=== PATIENT | female | born 1995 ===

== ENCOUNTER 2018-04-28 16:15 | Emergency (ER) | payer OTHER ==
--- NOTE | 2018-04-28 18:51 | OBHP ---
Datetime: 04/28/2018 17:44 IP Adm Impression: Term, intrauterine ; No Active Labor; Intact Membranes IP Admit Plan: Observation/Evaluation; Discharge home Admit Comment, IP Provider: Pt is a 22 yo F 38.2wk, ERUM 05/10/18 confirmed with U/S on , Reported LMP 08/09/17. Came to [facility] due to contractions since 7am. She reports good movemen ts. Denies vaginal bleeding, LOF, fevers, chills, chest pain, SOB, nausea, vomiting, diarrhea, consti pation or dysuria. 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 Lungs: clear to auscultation bilaterally, no wheezing, rales or rhonchi Abdomen: gravid Extremities: no edema Bimanual Exam- Cervix closed Speculum- Not performed heart rate - 140's, 6-25 moderate variability, category 1 A/P: Pt is a 22 yo F 38.2wk, ERUM 05/10/18 based on LMP 08/09/17 and ultrasound of 10/31/17. Came to [facility] due to contractions since 7am. -Observe in OB ED for changes in cervix Q hour -Continue to monitor heart rate (140's) Case reviewed and discussed with Attending -Leonora Rothman- PGY1 Attending Note: Patient was reevaluated after 1.5 hours of walking SVE: No cervical change. Plan: D/C Home Labor instructions given F/U with OB practitioner within 1 week. Pelvic Type - PN: Adequate Extremities - PN: Normal Abdomen - PN: Normal Back - PN: Not Done Breast - PN: Not Done Lungs - PN: Normal Heart - PN: Normal Thyroid - PN: Not Done Neurologic - PN: Normal HEENT - PN: Normal General - PN: Normal FHR - Baseline A Provider: 140 Membranes, Provider: Intact Comments, ACOG Physical Exam: Bimanual Exam- Cervix closed IP Hx Assessment: The History has been Reviewed and is Current EGA AdmitDate IP: 38.2 Vital Signs Provider: Reviewed; Within Normal Limits IP Chief Complaint: Uterine contractions NICHD Variability Prov Fetus A: Moderate 6-25bpm NICHD Accel Fetus A IP Provider: 15X15 FHR Category Provider Fetus A: Category I NICHD Decel Fetus A IP Provider: None Dilatation, Provider: 0 Genitourinary Exam: Normal DTRs - PN: Not Done
== END 2018-04-28 18:45 | disposition home or self-care (01) ==
LOC: H.EROB2 16:15
DX: O26.93 Pregnancy related conditions, unspecified, third trimester (principal); R10.2 Pelvic and perineal pain; Z3A.38 38 weeks gestation of pregnancy

== ENCOUNTER 2018-04-28 23:33 | Inpatient (IN) | payer OTHER ==
[2018-04-29 00:04] VITALS: BMI 30.2
[2018-04-29] MEDS ORDERED: Oxytocin 30 UNIT 30 UNITS/500 ML BAG IV ONE ×3 (00:04→09:56)
[2018-04-29] MEDS: Lactated Ringer's 1,000 ML IV ONE ×2 (00:05→00:40)
[2018-04-29] MEDS ORDERED: OXYTOCIN IV ONE (00:14)
[2018-04-29] MEDS ORDERED: NS IV ONE (00:14)
[2018-04-29] MEDS ORDERED: Lactated Ringer's 1,000 ML IV SCH (00:15)
--- NOTE | 2018-04-29 00:17 | OBADHP ---
Datetime: 04/29/2018 00:09 Admit Comment, IP Provider: 22yo with IUP at 38+ weeks. She returns today with pelvic contracti ons which has increased in intensity after being discharged yesterday for irregular labor. She denies any Vaginal bleeding or LOF. She felt movement. PNC from [place]. O; Afebrile Heart: RRR Chest: CTA B/L Abdomen: Soft, NT, BS- present FHR- 150s with Moderate variabilities TOCO- q 2-4 SVE: /2 Assessment: IUP at 38wks in Active Labor Reassuring Maternal Status Plan: Admit to labor and delivery. Monitor for the progress of labor. Pelvic Type - PN: Adequate Extremities - PN: Normal Abdomen - PN: Normal Back - PN: Normal Breast - PN: Normal Lungs - PN: Normal Heart - PN: Normal Thyroid - PN: Normal Neurologic - PN: Normal HEENT - PN: Normal General - PN: Normal Presentation-Admit: Vertex FHR - Baseline A Provider: 150 Membranes, Provider: Intact Contraction Comments Provider: Q 2-4 Gestation - Est Wks by US: 38.3 IP Chief Complaint: Uterine contractions; Maternal discomfort NICHD Variability Prov Fetus A: Moderate 6-25bpm NICHD Accel Fetus A IP Provider: [id number] FHR Category Provider Fetus A: Category I NICHD Decel Fetus A IP Provider: None Dilatation, Provider: 7 Effacement, Provider: 90 Station, Provider: -1 Genitourinary Exam: Normal DTRs - PN: Normal EGA AdmitDate IP: 38.3 IP Adm Impression: Term, intrauterine ; Active labor IP Admit Plan: Admit to unit; Initiate labor protocol Datetime: 04/28/2018 17:44 Comments, ACOG Physical Exam: Bimanual Exam- Cervix closed IP Hx Assessment: The History has been Reviewed and is Current Vital Signs Provider: Reviewed; Within Normal Limits
[2018-04-29 00:24] LABS: BASO % 0.2 % (0.0-2.0); EOS % 0.1 % (0.0-4.0); HEMOGLOBIN 14.5 g/dL (12.0-16.0); LYMPH # 1.2 K/uL (1.0-4.3); LYMPH % 7.2 % (20.0-40.0); MEAN CELL VOLUME 92.9 fl (81.0-99.0); MEAN CORPUSCULAR HEMOGLOBIN 31.3 pg (27.0-31.0); MEAN CORPUSCULAR HGB CONC 33.7 g/dL (33.0-37.0); MEAN PLATELET VOLUME 11.1 fl (7.2-11.7); MONO # 0.8 K/uL (0.0-0.8); MONO % 4.7 % (0.0-10.0); NEUT # 14.7 K/uL (1.8-7.0); NEUT % 87.8 % (50.0-75.0); PLATELET COUNT 130 K/uL (130-400); RBC 4.62 Mil/uL (3.80-5.20); RED CELL DISTRIBUTION WIDTH 13.2 % (11.5-14.5); WHITE BLOOD COUNT 16.8 K/uL (4.8-10.8)
[2018-04-29] MEDS ORDERED: Fentanyl/Bupivacaine HCl 250 ML EPI ONE (00:36)
[2018-04-29 01:42] VITALS: O2SAT 100
[2018-04-29 01:42] LABS: LYMPHOCYTE 7 % (20-50); METAMYELOCYTE 1 % (0-0); MONOCYTE 5 % (0-10); NEUTROPHIL 86 % (42-75); PLATELET ESTIMATE DECREASED (NORMAL); REACTIVE LYMPHOCYTES 1 % (0-0); TOTAL CELLS COUNTED 100
[2018-04-29] MEDS ORDERED: Lidocaine 1% Inj (20ml) ONE (03:06)
--- NOTE | 2018-04-29 06:26 | OBDS ---
DELIVERY PERSONNEL Delivery Doctor: Sandra Goode MD Cake Washer: Mary Sheridan RN, Zheng BOWERS, Charis BOWERS Anesthesiologist: Rd Cool MD MATERNAL INFORMATION Delivery Anesthesia: Epidural Medications in Delivery: Pitocin Placenta Cultured: No Maternal Complications: None Provider Comments: Patient was fully dilated and was pushing. The FHR was registering episodes of fe gordon bradycardia for 2-3 mins to the 80s. SVE: 10/100/+3. On account of the repetititive decelerations, A kiwi vacuum extractor was a pplied and a right mediolateral episiotomy performed. A viable male infant with BW of 3125gm and APGA R scores of 9 and 9 was delivered after 1 pull. Placenta delivered spontaneously. EBL- 250mls Episiotomy repaired with 2-0 vicryl under epidural anesthesia with good cosmesis. Patient tolerated the procedure well. LABOR SUMMARY EDC: 05/10/2018 00:00 No. Babies in Womb: 1 LABOR INFORMATION Group B Beta Strep: Negative MEMBRANES Membranes Rupture Method: Spontaneous Rupture of Membranes: 04/29/2018 05:28 Length of Rupture (hrs): 0.40 Amniotic Fluid Color: Clear Amniotic Fluid Amount: Moderate Amniotic Fluid Odor: Normal STAGES OF LABOR Stage 3 hrs: -167 Stage 3 min: -56 VAGINAL DELIVERY Episiotomy: Right Mediolateral Laceration Extension: N/A Laceration Type: None Laceration Repair: Yes Sponge Count Correct: Yes Sharps Count Correct: Yes BABY A INFORMATION Delivery Date/Time: 04/29/2018 05:52 Method of Delivery: Vaginal Born in Route : No : N/A Forceps: N/A Vacuum Extraction: Successful Shoulder Dystocia : No SHOULDER DYSTOCIA BABY A Delivery Date/Time: 04/29/2018 05:52 PRESENTATION/POSITION BABY A Presentation: Cephalic Cephalic Presentation: Vertex Breech Presentation: N/A PLACENTA INFORMATION BABY A Placenta Delivery Time : 04/22/2018 05:56 Placenta Method of Delivery: Spontaneous Placenta Status: Delivered SCORES BABY A Heart Rate 1 min: >100 bpm Resp Effort 1 min: Good Cry Reflex Irritability 1 min: Cough or Sneeze or Pulls Away Muscle Tone 1 min: Active Motion Color 1 min: Body [place], Extremities Blue Resuscitation Effort 1 min: Tactile Stimulation SCORE 1 MIN: 9 Heart Rate 5 min: >100 bpm Resp Effort 5 min: Good Cry Reflex Irritability 5 min: Cough or Sneeze or Pulls Away Muscle Tone 5 min: Active Motion Color 5 min: Body [place], Extremities Blue Resuscitation Effort 5 min: N/A SCORE 5 MIN: 9 INFANT INFORMATION BABY A Gestational Age at Delivery: 38.3 Gestational Status: Term Infant Outcome : Liveborn Condition : Stable Sex: Male IDENTIFICATION/MEDS BABY A ID Band Number: [id number] ID Band Location: Left Leg; Left Arm WEIGHT/LENGTH BABY A Birthweight (gms): 3125 Weight (lb): 6 Weight (oz): 14 CORD INFORMATION BABY A No. Cord Vessels: 3 Nuchal Cord : N/A Cord Blood Taken: N/A Infant Suction: Mouth; Nose ASSESSMENT BABY A Infant Complications: Extended Bradycardia; Multiple Late Decels; Multiple Variable Decels Physical Findings at Delivery: Within Normal Limits Respirations: Appears Normal Lease Out Worker/ALS Called : No Infant Care By: Stanley Hoover RN Transferred To: Remains with Mother
[2018-04-29] MEDS ORDERED: Oxycodone/Acetaminophen 5/325 mg Tab PO PRN ×2 (06:27→09:56)
[2018-04-29] MEDS ORDERED: Benzocaine/Menthol SPRAY TOP PRN ×2 (06:27→09:56)
[2018-04-29] MEDS ORDERED: Multivitamin With Minerals Tab PO SCH (09:00)
[2018-04-30 06:39] LABS: BASO % 0.2 % (0.0-2.0); EOS # 0.1 K/uL (0.0-0.7); EOS % 0.8 % (0.0-4.0); HEMOGLOBIN 11.3 g/dL (12.0-16.0); LYMPH # 2.3 K/uL (1.0-4.3); LYMPH % 19.5 % (20.0-40.0); MEAN CELL VOLUME 94.7 fl (81.0-99.0); MEAN CORPUSCULAR HEMOGLOBIN 31.9 pg (27.0-31.0); MEAN CORPUSCULAR HGB CONC 33.7 g/dL (33.0-37.0); MEAN PLATELET VOLUME 11.9 fl (7.2-11.7); MONO # 0.9 K/uL (0.0-0.8); MONO % 7.8 % (0.0-10.0); NEUT # 8.3 K/uL (1.8-7.0); NEUT % 71.7 % (50.0-75.0); NRBC % 0.1 % (0.0-0.0); RBC 3.55 Mil/uL (3.80-5.20); RED CELL DISTRIBUTION WIDTH 13.5 % (11.5-14.5); WHITE BLOOD COUNT 11.6 K/uL (4.8-10.8)
[2018-04-30] MEDS: Multivitamin With Minerals Tab PO SCH (08:14)
--- NOTE | 2018-04-30 12:06 | OBPPN ---
Datetime: 04/30/2018 06:45 PP Pain Prov: Within normal limits PP Nausea Prov: Denies PP Flatus Prov: Yes PP BM Prov: No PP Progress Note Prov: PPD1 S: 22yo delivered at 38.2 week gest [facility]. Seen and examined at bedside this AM. Patient fe lt well overnight. Pt reports mild pain controlled with pain meds. Ambulating well without dizziness. Breast and Bottle feeding. Tolerating regular diet. Lochia is similar to menses volume. Voiding free ly with no blood noted, no bowel movement yet, passing gas per rectum. Denies fever/chills, diarrhea, constipation, nausea/vomiting, CP/SOB , Lightheadedness, calf pain. Denies circumcision for O: T: 98.0 BP112/68 HR85 PHYSICAL EXAM: GEN: Resting comfortably in bed, NAD HEENT: NCAT, oral mucosa moist. LUNGS: CTA B/L, no wheezing ,rhonchi, or rales CVS: RRR, S1,S2,no murmurs rubs or gallops ABD: ND, +BS, firm fundus @ umbilical level. Soft, appropriate TTP EXT: No edema, calves nontender PSYCHI: preserved affect and mood. Assessment: 22yo delivered at 38.2 week gest [facility] on 04/29/18, PPD 1. Pt afebrile, tolerating pain wit h medication, vital signs stable, tolerating oral intake Plan: Regular diet, discontinued IVF's OOB with caution Percocet 5/325 mg 1-2 tablets po q4hrs severe pain Ibuprofen 600 mg 1 tab q6 hrs po if mild pain. Encouraged Colace 100mg PO BID for constipation Dermoplast F/U in 6 weeks post- and 1 week visit with Tristan Davidson Case reviewed and Discussed with Attending -Leonora Rothman- PGY1 Addendum by Dr. pisano: I have evaluated the patient independently and I agree with the above Vital Signs Provider PP: Reviewed; Within Normal Limits
[2018-04-30] MEDS ORDERED: Influenza Vaccine (5 YR UP)/PF 60 MCG/0.5 ML SYR IM ONE (18:11)
[2018-05-01] MEDS: Multivitamin With Minerals Tab PO SCH (08:31)
--- NOTE | 2018-05-01 09:22 | OBDCSUM ---
Datetime: 05/01/2018 06:22 Discharged to, Provider: Home Follow up at, Provider: Your doctor Disch Instr Activity: May be up to bathroom; May be up for meals; May Shower Disch Instr Diet: Regular Discharge Instructions, Provider: Routine instructions given Discharge Diagnosis, Provider: Term Delivered Follow up in weeks, Provider: 4-6 weeks Disch Referrals: None Disch Activity Restrictions: Minimize walking; Minimize stair-climbing; No sexual activity; Nothing in vagina - [place], tampons, douche Discharge Comment, Provider: - encouraged. -Ibuprofen 600mg every 4 to 6 hours for pain. -Ambulate as tolerated. -May shower, but no lifting, minimize stair climbing. -Nothing in vagina for 4-6 wks ( no tamponds, no sex) -F/u NB visit 3-7 days w/ style advisor and PP visit 6 weeks with OB OB Hospitalist on-call : pt seen on rounds today. She feels better. Agree with note DAYO
--- NOTE | 2018-05-01 09:22 | OBPPN ---
Datetime: 05/01/2018 06:20 PP Pain Prov: Within normal limits PP Nausea Prov: Denies PP Flatus Prov: Yes PP BM Prov: No PP Heart Prov: Normal PP Lungs Prov: Normal PP Abdomen/Uterus Prov: Normal PP Extremities Prov: Normal PP Progress Note Prov: A/P: 22 y/o PPD2 s/p on 05/01/2018 @ 5:52. Pt was seen and examined this AM. No adverse events overnight. Patient's is c/o pain at site of episiotomy, stating pain is i ncreased with sitting. Fundus @ level of umbilicus. Lochia like menses. No BM, but passing gas per re ctum. Pt B _ B feeding. She denies any f/c/n/v/d, dysuria, chest pain or difficulty breathing. VS:stable Gen: sitting on legs in bed, awake Cardio: s1s2, RRR Lungs: no wheeze Abd: BS+, appropriate tenderness EXT: calves nontender, nonedematous A/P: 22 y/o PPD2 s/p on 05/01/2018 @ 5:52. -Encouraged ambulating. -Motrin 600mg for mild pain prn. -SCDs for DVT prophylaxis. -Discharge today. OB Hospitalist on-call : pt seen on rounds today. She feels better. Agree with note MOEO Vital Signs Provider PP: Reviewed; Within Normal Limits
[2018-05-01 09:59] VITALS: BP 114/61; PULSE 97; RESP 20; TEMP 98.2
== END 2018-05-01 13:05 | disposition home or self-care (01) | DRG 560 ==
LOC: H.EROB2 23:33 → H.L&D 04-29 00:04 → H.OB/GYN 04-29 08:37
PROVIDERS: ADMIT Obstetrics & Gynecology; ATTEND Obstetrics & Gynecology
PROC: 10E0XZZ Delivery of Products of Conception, External Approach (ICD-10-PCS; principal; 2018-04-29)
PROC: 0W8NXZZ Division of Female Perineum, External Approach (ICD-10-PCS; 2018-04-29)
PROC: 4A1HXCZ Monitoring of Products of Conception, Cardiac Rate, External Approach (ICD-10-PCS; 2018-04-29)
DX: O76 Abnormality in fetal heart rate and rhythm complicating labor and delivery (principal); O62.2 Other uterine inertia; Z37.0 Single live birth; Z3A.38 38 weeks gestation of pregnancy